=== PATIENT | male | born 1955 | race Caucasian/White ===

== ENCOUNTER 2016-11-08 17:05 | Outpatient (CLI) | payer OTHER ==
[2016-11-08 18:01] LABS: Blood Urea Nitrogen 12 mg/dL (9-20)
[2016-11-08] MEDS ORDERED: NACL ONE (18:16)
--- NOTE | 2016-11-08 20:26 | Cat Scan Report ---
FINAL REPORT EXAM: CT ABDOMEN W CON HISTORY: LEG EDEMA ABD LYMPHADENOPAHY TECHNIQUE: CT images are acquired through the Abdomen arterial and delayed venous phases following ingestion of positive enteric contrast and intravenous administration of contrast. Transaxial, coronal and sagittal Reformations are provided. PRIORS: None FINDINGS: Partially visualized intrathoracic contents are unremarkable. Subtle hypo enhancing predominantly subcentimeter masses seen within the liver and spleen. No intra or extrahepatic biliary ductal dilatation. The gallbladder, pancreas and adrenal glands are within normal limits. Kidneys are normal in size, axis and position and demonstrate normal cortical medullary and delayed enhancement phase appearance. No hydroureteronephrosis within the field of view or nephrolithiasis. Massive retroperitoneal and mesenteric root lymphadenopathy. A left para-aortic lymph node extending inferiorly off the field of view measures at least 5.6 x 5.2 cm in greatest dimensions on axial series 3, image 127. Superior to that lymph node there is a 6.1 x 6 cm left periaortic lymph node conglomerate. There is up lifting of the aorta inferiorly and at the level of the bifurcation. Densely scattered atherosclerotic calcification. Positive enteric contrast is seen as far distally as the transverse colon. The imaged hollow enteric organs are normal in course and caliber. No pneumoperitoneum. Superficial soft tissues and imaged portion of the skeleton are unremarkable. IMPRESSION: Extensive retroperitoneal and mesenteric lymphadenopathy with uplifting of the aorta is highly suggestive of lymphoma. Staging imaging and Oncology consultation are warranted. Findings conveyed to substation operator helper generation physician via [employer] support technicians.
== END 2016-11-08 17:06 | disposition home or self-care (01) ==
LOC: CT 17:05
PROVIDERS: ATTEND Internal Medicine
DX: R59.1 Generalized enlarged lymph nodes (principal); R60.0 Localized edema
CPT/HCPCS: 36415; 74160; 82565; 84520; Q9967